=== PATIENT | male | born 1965 | race Caucasian/White ===

== ENCOUNTER 2017-08-21 14:43 | Emergency (ER) | payer OTHER ==
[2017-08-21 14:58] VITALS: BP 129/93; PULSE 65; TEMP 98.2; BMI 29.2
[2017-08-21] MEDS ORDERED: CLINDAMYCIN 600MG PREMIX IVPB 50 ML IVPB ONE (16:58)
[2017-08-21] MEDS ORDERED: CLINDAMYCIN PHOSPHATE 600 MG/4 ML VIAL ONE (17:01)
--- NOTE | 2017-08-21 17:02 | PDOC ---
History of Present Illness - General Chief Complaint: Wound Stated Complaint: SWELLING ON ARM Time Seen by Provider: 08/21/17 16:45 History Source: Patient Exam Limitations: No Limitations - History of Present Illness Initial Comments: 08/21/17 17:01 Patient is a 51-year-old healthy male, no significant medical history currently on no medication presents with erythematous painful, raised area to right forearm. Patient reports that area is causing pain, no fever however states he "doesn't feel well". Past Medical History: Denies. Allergies: Seafood Medications: None Family History: Non-contributory Social History: Denies smoking, alcohol use, or IVDU Review of Systems GENERAL/CONSTITUTIONAL: No fever or chills. No weakness. No weight change. HEAD, EYES, EARS, NOSE AND THROAT: No change in vision. No ear pain or discharge. No sore throat. CARDIOVASCULAR: No chest pain or shortness of breath. RESPIRATORY: No cough, wheezing, or hemoptysis. GASTROINTESTINAL: No nausea, vomiting, diarrhea or constipation. No rectal bleeding. GENITOURINARY: No dysuria, frequency, or change in urination. MUSCULOSKELETAL: No joint or muscle swelling or pain. No neck or back pain. SKIN : No rash or easy bruising. Erythematous raised area to right forearm with central punctum NEUROLOGIC: No headache, vertigo, loss of consciousness, or loss of sensation. PSYCHIATRIC: No depression or anxiety. ENDOCRINE: No increased thirst. No abnormal weight change. HEMATOLOGIC/LYMPHATIC: No anemia, easy bleeding, or history of blood clots. ALLERGIC/IMMUNOLOGIC: No hives or skin allergy. No latex allergy. Physical Exam: GENERAL: The patient is awake, alert, and fully oriented, in no acute distress. EYES: Pupils equal, round and reactive to light, extraocular movements intact, sclera anicteric, conjunctiva clear. ENT: Ears normal, nares patent, oropharynx clear without exudates. Moist mucous membranes. No uvula deviation NECK: Normal range of motion, supple without lymphadenopathy, JVD, or masses. LUNGS: Breath sounds equal, clear to auscultation bilaterally. No wheezes, and no crackles. HEART: Regular rate and rhythm, normal S1 and S2 without murmur, rub or gallop. ABDOMEN: Soft, nontender, normoactive bowel sounds. No guarding, no rebound. No masses. No bruising or abrasions RECTAL : Guaiac negative, normal rectal tone. MUSCULOSKELETAL: Normal range of motion, no edema. No clubbing or cyanosis. No cords, erythema, or tenderness. No CVA Tenderness with fist. NEUROLOGICAL: Cranial nerves II through XII grossly intact. Normal speech, normal gait. SKIN: Warm, Dry, normal turgor, no rashes or lesions noted. Erythematous raised area, well-defined with central punctum, no drainage, no fluctuance. No streaking 08/21/17 18:15 Past History - Past Medical History Allergies/Adverse Reactions: Allergies Allergy/AdvReac Type Severity Reaction Status Date / Time No Known Drug Allergies Allergy Verified 08/21/17 14:58 SEAFOOD Allergy Unknown Uncoded 08/21/17 14:58 Home Medications: Ambulatory Orders Clindamycin [Cleocin -] 300 mg PO Q6HPO #30 capsule 08/21/17 Thyroid Disease: No - Suicide/Smoking/Psychosocial Hx Smoking Status: No Smoking History: Never smoked Have you smoked in the past 12 months: No Number of Cigarettes Smoked Daily: 0 Information on smoking cessation initiated: No Hx Alcohol Use: No Drug/Substance Use Hx: No Substance Use Type: None *Physical Exam - Vital Signs Last Vital Signs Temp Pulse Resp BP Pulse Ox 98.2 F 65 18 129/93 100 08/21/17 14:54 08/21/17 14:54 08/21/17 14:54 08/21/17 14:54 08/21/17 14:54 Medical Decision Making - Medical Decision Making 08/21/17 18:14 A/P: Patient here for evaluation of erythematous raised well-defined area to right forearm with central punctum . Area no fluctuance, not consistent with an abscess however may be folliculitis versus infected bug bite. Because patient states "I just feel well" will give 1 dose of IV clindamycin, DC home on clindamycin. Warm compresses to arm, refrain from rubbing or scratching area Any increased redness, swelling, or signs of infection patient to return back to ER. Wound culture sent minimal drainage noted. I discussed the physical exam findings, ancillary test results and final diagnoses with the patient. I answered all of the patient's questions. The patient was satisfied with the care received and felt comfortable with the discharge plan and treatment plan. The patient will call to arrange follow-up and will return to the Emergency Department with any new, persistant or worsening symptoms. *DC/Admit/Observation/Transfer Diagnosis at time of Disposition: Cellulitis of right arm - Discharge Dispostion Disposition: HOME Condition at time of disposition: Good Admit: No - Prescriptions Prescriptions: Clindamycin [Cleocin -] 300 mg PO Q6HPO #30 capsule - Referrals Referrals: Jamel Schmitt [Non Staff, Medical] - - Patient Instructions Additional Instructions: Warm compresses to arm Please take antibiotics as ordered, please monitor area for any increased redness swelling or streaking of red line up arm if any of the above please return immediately to emergency room Motrin for pain
== END 2017-08-21 18:25 | disposition home or self-care (01) ==
LOC: JERFT 14:43
DX: L03.113 Cellulitis of right upper limb (principal)
CPT/HCPCS: 87070; 87186; 87205; 96365; 99281-25

== ENCOUNTER 2017-12-30 22:20 | Emergency (ER) | payer OTHER ==
[2017-12-30 22:25] VITALS: BP 132/76; PULSE 70; TEMP 98.5; BMI 30.2
[2017-12-30] MEDS ORDERED: DIPHTH,PERTUSS(ACELL),TET 0.5 ML DISP.SYRIN IM ONE (22:41)
--- NOTE | 2017-12-30 22:54 | PDOC ---
History of Present Illness - General Chief Complaint: Laceration Stated Complaint: LACERATION Time Seen by Provider: 12/30/17 22:38 History Source: Patient Exam Limitations: No Limitations - History of Present Illness Initial Comments: 12/30/17 22:50 The patient is a 52M with no PMH who presents after cutting his finger on a sink pipe. Affected finger is 2nd L digit. The patient denies any neurovascular changes on his finger and denies taking any blood thinners. He says it was bleeding profusely initially then the bleeding subsided. He washed his hands immediately after. He does not recall his last tetanus shot. Past History - Past Medical History Allergies/Adverse Reactions: Allergies Allergy/AdvReac Type Severity Reaction Status Date / Time No Known Drug Allergies Allergy Verified 08/21/17 14:58 SEAFOOD Allergy Unknown Uncoded 08/21/17 14:58 Home Medications: Ambulatory Orders Alprazolam [Xanax] 0.5 mg PO PRN 12/30/17 COPD: No Thyroid Disease: No - Suicide/Smoking/Psychosocial Hx Smoking Status: No Smoking History: Never smoked Have you smoked in the past 12 months: No Number of Cigarettes Smoked Daily: 0 Information on smoking cessation initiated: No Hx Alcohol Use: No Drug/Substance Use Hx: No Substance Use Type: None Review of Systems - Review of Systems Able to Perform ROS?: Yes Is the patient limited Belgian proficient: No Constitutional: No: Chills, Fever Integumentary: Yes: Other (Laceration) Neurological: No: Numbness, Tingling, Weakness *Physical Exam - Vital Signs Last Vital Signs Temp Pulse Resp BP Pulse Ox 98.5 F 70 18 132/76 100 12/30/17 22:22 12/30/17 22:22 12/30/17 22:22 12/30/17 22:22 12/30/17 22:22 - Physical Exam General Appearance: Yes: Appropriately Dressed, Apparent Distress HEENT: positive: Normal Voice, Hearing Grossly Normal Respiratory/Chest: negative: Respiratory Distress, Accessory Muscle Use Extremity: positive: Normal Inspection, Normal Range of Motion Integumentary: positive: Dry, Warm, Other (2 0.5 cm linear lacerations on dorsal surface of L 2nd digit; neurovascularly intact in 2nd digit) Procedures - Laceration/Wound Repair Left Dorsal Finger 2nd digit Wound Length: to 2.5 cm Wound Explored: clean Wound's Depth, Shape: superficial Irrigated w/ Saline: Yes Betadine Prep: No Anesthesia: 1% Lidocaine Wound Debrided: minimal Wound Repaired With: Sutures Suture Size/Type: 4:0 Number of Sutures: 4 Layer Closure: No Sterile Dressing Applied: Yes Splint Applied: Yes Sling Applied: No Medical Decision Making - Medical Decision Making 12/30/17 22:52 The patient is a 52M with no PMH who presents after lacerating his finger. Lac is clean. I have had the patient wash his hands thoroughly. Tetanus is given. 12/30/17 23:38 Lacerations repaired with 4-0 suture. *DC/Admit/Observation/Transfer Diagnosis at time of Disposition: Laceration - Discharge Dispostion Disposition: HOME Condition at time of disposition: Stable Admit: No - Referrals - Patient Instructions Printed Discharge Instructions: DI for Laceration Repair Additional Instructions: Please return to the ER if symptoms persist, worsen, or new symptoms arise. Please return to the ER, go to an urgent care, or go to your primary care office in 7-10 days for suture removal. Please return to the ER immediately if you have pain, redness, swelling, or drainage from the site of where you got cut or around it. Please return to the ER if you have any signs or symptoms of chest pain, shortness of breath, uncontrollable fever, chills, nausea, vomiting, numbness, tingling, or weakness in any part of your body, changes in vision, or slurred speech. - Post Discharge Activity
--- NOTE | 2017-12-30 23:22 | PDOC ---
Attending Attestation - Resident Resident Name: Amilcar Hamm - ED Attending Attestation I have performed the following: I have examined & evaluated the patient, The case was reviewed & discussed with the resident, I agree w/resident's findings & plan, Exceptions are as noted - HPI HPI: 12/30/17 23:19 52 M with no PMH presents to ED with laceration over L 2nd digit. Pt was working on pipes when he cut his finger on the edge of a pipe. Pt rinsed it out immediately afterwards. States that it bled initially but eventually stopped. Pt denies any other injury. Does not recall last tetanus shot. - Physicial Exam PE: 12/30/17 23:20 "GENERAL: Awake, alert, and fully oriented, in no acute distress HEAD: No signs of trauma EYES: PERRLA, EOMI, sclera anicteric, conjunctiva clear ENT: Auricles normal inspection, hearing grossly normal, nares patent, oropharynx clear without exudates. Moist mucosa NECK: Nontender, no stepoffs, Normal ROM, supple, no lymphadenopathy, JVD, or masses LUNGS: Breath sounds equal, clear to auscultation bilaterally. No wheezes, and no crackles HEART: Regular rate and rhythm, normal S1 and S2, no murmurs, rubs or gallops ABDOMEN: Soft, nontender, normoactive bowel sounds. No guarding, no rebound. No masses EXTREMITIES: + L 2nd digit with 3cm laceration extending over dorsal aspect of PIP. extensor tendons intact, Normal range of motion. NEUROLOGICAL: Cranial nerves II through XII intact. 5/5 strength and sensation in all extremities, Normal speech, normal gait, normal cerebellar function SKIN: Warm, Dry, normal turgor, no rashes or lesions noted. " - Medical Decision Making 12/30/17 23:20 52 M with L 2nd digit laceration. No evidence of tendon injury. Wound does not extend into joint space. Irrigated. - Lac repaired - Tdap administered Pt is well appearing, with normal vitals. Clinically stable for DC at this time. I discussed the physical exam findings, ancillary test results and final diagnoses with the patient. I answered all of the patient's questions. The patient was satisfied with the care received and felt comfortable with the discharge plan and treatment plan. The patient agrees to follow up with the primary care physician within 24-72 hours.
== END 2017-12-31 00:11 | disposition home or self-care (01) ==
LOC: JER 22:20
PROC: 3E0234Z Introduction of Serum, Toxoid and Vaccine into Muscle, Percutaneous Approach (ICD-10-PCS; principal; 2017-12-30)
PROC: 0HQGXZZ Repair Left Hand Skin, External Approach (ICD-10-PCS; 2017-12-30)
DX: S61.211A Laceration without foreign body of left index finger without damage to nail, initial encounter (principal); W22.8XXA Striking against or struck by other objects, initial encounter; Y93.89 Activity, other specified; Y92.010 Kitchen of single-family (private) house as the place of occurrence of the external cause; Y99.8 Other external cause status
CPT/HCPCS: 90715; 99281-25

== ENCOUNTER 2018-04-10 17:02 | Emergency (ER) | payer OTHER ==
[2018-04-10 17:06] VITALS: BP 134/73; PULSE 64; TEMP 97; BMI 29.2
[2018-04-10] MEDS ORDERED: KETOROLAC TROMETHAMINE 60 MG/2 ML VIAL IM ONE (18:01)
[2018-04-10] MEDS ORDERED: KETOROLAC TROMETHAMINE 60 MG/2 ML VIAL ONE (18:02)
--- NOTE | 2018-04-10 18:07 | PDOC ---
History of Present Illness - General Chief Complaint: Back Pain Stated Complaint: BACK PAIN Time Seen by Provider: 04/10/18 17:15 History Source: Patient Exam Limitations: No Limitations - History of Present Illness Initial Comments: 04/10/18 18:07 Patient is a 52-year-old male past medical history of back pain, who presents to the emergency department today with low back pain on the left side. Patient states he was getting out of the shower when he slipped 6 days ago. Denies falling however he feels like he tweaked his back at that time. His symptoms improved over the next 2 days however on Wednesday he states his symptoms began got worse. He states now that the pain goes down his left leg. Taken naproxen and oxycodone at home with no relief of symptoms. Denies falling, LOC, weakness , dizziness numbness and tingling, saddle anesthesia, bladder or bowel incontinence. Past History - Travel Traveled outside of the country in the last 30 days: No Close contact w/someone who was outside of country & ill: No - Past Medical History Allergies/Adverse Reactions: Allergies Allergy/AdvReac Type Severity Reaction Status Date / Time No Known Drug Allergies Allergy Verified 04/10/18 17:06 SEAFOOD Allergy Unknown Uncoded 04/10/18 17:06 Home Medications: Ambulatory Orders Alprazolam [Xanax] 0.5 mg PO PRN 12/30/17 Ibuprofen 800 mg PO TID #30 tablet 04/10/18 Methylprednisolone [Medrol -] 4 mg PO ASDIR #21 tablet 04/10/18 COPD: No Thyroid Disease: No - Immunization History Immunization Up to Date: Yes - Suicide/Smoking/Psychosocial Hx Smoking Status: No Smoking History: Never smoked Have you smoked in the past 12 months: No Number of Cigarettes Smoked Daily: 0 Hx Alcohol Use: No Drug/Substance Use Hx: No Substance Use Type: None Review of Systems - Review of Systems Able to Perform ROS?: Yes Comments:: 04/10/18 18:04 CONSTITUTIONAL: Absent: fever, chills, diaphoresis, generalized weakness, malaise, loss of appetite HEENT: Absent: rhinorrhea, nasal congestion, throat pain, throat swelling, difficulty swallowing, mouth swelling, ear pain, eye pain, visual Changes CARDIOVASCULAR: Absent: chest pain, loss of consciousness, palpitations, irregular heart rate, peripheral edema RESPIRATORY: Absent: cough, shortness of breath, dyspnea with exertion, orthopnea, wheezing, stridor, hemoptysis GASTROINTESTINAL: Absent: abdominal pain, abdominal distension, nausea, vomiting, diarrhea, constipation, melena, hematochezia GENITOURINARY: Absent: dysuria, frequency, urgency, hesitancy, hematuria, flank pain, genital pain MUSCULOSKELETAL: Present: Low back pain radiating down the L leg. Absent: myalgia, arthralgia, joint swelling SKIN: Absent: rash, itching, pallor HEMATOLOGIC/IMMUNOLOGIC: Absent: easy bleeding, easy bruising, lymphadenopathy, frequent infections ENDOCRINE: Absent: unexplained weight gain, unexplained weight loss, heat intolerance, cold intolerance NEUROLOGIC: Absent: headache, focal weakness or paresthesias, dizziness, unsteady gait, seizure, mental status changes, bladder or bowel incontinence PSYCHIATRIC: Absent: anxiety, depression, suicidal or homicidal ideation, hallucinations. Is the patient limited Kiswahili proficient: No *Physical Exam - Vital Signs Last Vital Signs Temp Pulse Resp BP Pulse Ox 97 F L 64 18 134/73 99 04/10/18 17:03 04/10/18 17:03 04/10/18 17:03 04/10/18 17:03 04/10/18 17:03 - Physical Exam Comments: 04/10/18 18:04 GENERAL: Well developed, well nourished. Awake and alert. No acute distress. MUSCULOSKELETAL TTP of left lower back and midline tenderness. (+) straight leg raise on the L. Strength and gross sensation intact in lower extremities b/l. 2+ patellar reflexes b/l. Normal range of motion at all joints. No CVA tenderness. EXTREMITIES: No cyanosis. No clubbing. No edema. No calf tenderness. SKIN: Warm and dry. Normal capillary refill. No rashes. No jaundice. NEUROLOGICAL: Alert, awake, appropriate. Cranial nerves 2-12 intact. No deficits to light touch and temperature in face, upper extremities and lower extremities. No motor deficits in the in face, upper extremities and lower extremities. Normoreflexic in the upper and lower extremities. Normal speech. Toes are down- going bilaterally. Gait with limp favoring the R. No ataxia PSYCHIATRIC: Cooperative. Good eye contact. Appropriate mood and affect. Medical Decision Making - Medical Decision Making 04/10/18 18:08 Patient is a 52-year-old male who presents emergency Department with 6 days of low back pain. On exam patient with no gross neuro deficits. Positive straight leg test on the left. Tenderness to palpation of the paraspinous muscles on the left at the level of S1. Patient given Toradol with relief of symptoms. Most likely a spasm. However given history of back pain, ortho and neurosurgery referrals given. Return precautions given. Medrol Dosepak prescribed given failed both naproxen and oxycodone at home. We'll discharge patient home at this time. Patient understands all discharge instructions and all questions were answered. *DC/Admit/Observation/Transfer Diagnosis at time of Disposition: Back pain Qualifiers: Back pain location: low back pain Chronicity: acute Back pain laterality: left Sciatica presence: with sciatica Sciatica laterality: sciatica of left side Qualified Code(s): M54.42 - Lumbago with sciatica, left side - Discharge Dispostion Disposition: HOME Condition at time of disposition: Stable Decision to Admit order: No - Referrals Referrals: Roman Collins MD [Staff Physician] - Omid Kaye MD, FAANS [Staff Physician] - - Patient Instructions Printed Discharge Instructions: DI for Low Back Pain Additional Instructions: You have low back pain due to a muscle spasm. Please take ibuprofen 800 mg 3 times a day not to exceed 3000 mg a day. You were also prescribed a medrol dose pack. Please follow the instructions on the box. You may use warm compresses on your back to help with her symptoms. Please follow-up with your primary care doctor. If your symptoms do not resolve in 3-5 days, follow-up with orthopedics. A referral has been provided for you. Return to the emergency department if you have worsening back pain, bladder or bowel incontinence, numbness and tingling in her legs, changes in the way you walk, or any new or worsening symptoms. - Post Discharge Activity
== END 2018-04-10 18:09 | disposition home or self-care (01) ==
LOC: JERFT 17:02
DX: M54.42 Lumbago with sciatica, left side (principal); W18.2XXA Fall in (into) shower or empty bathtub, initial encounter; Y93.E1 Activity, personal bathing and showering; Y92.012 Bathroom of single-family (private) house as the place of occurrence of the external cause; Y99.8 Other external cause status
CPT/HCPCS: 99281-25

== ENCOUNTER 2018-07-26 12:29 | Emergency (ER) | payer OTHER ==
[2018-07-26 12:37] VITALS: BP 105/75; PULSE 68; TEMP 98.6; BMI 28.8
--- NOTE | 2018-07-26 12:57 | PDOC ---
History of Present Illness - General Chief Complaint: Injury Stated Complaint: HAND INJURY Time Seen by Provider: 07/26/18 12:46 History Source: Patient Exam Limitations: No Limitations - History of Present Illness Initial Comments: 07/26/18 13:11 Patient came for evaluation of swelling and pain to right hand. States 2 days ago looped his hand back and struck the dorsum on the door jam of his car and since that time his been swollen and painful. Occurred: reports: yesterday Severity: reports: mild, moderate Pain Location: reports: upper extremity (right hand) Method of Injury: Yes: direct blow Modifying Factors: improves with: cold therapy Associated Symptoms (Fall): denies symptoms Past History - Travel Traveled outside of the country in the last 30 days: No Close contact w/someone who was outside of country & ill: No - Past Medical History Allergies/Adverse Reactions: Allergies Allergy/AdvReac Type Severity Reaction Status Date / Time No Known Drug Allergies Allergy Verified 04/10/18 17:06 SEAFOOD Allergy Unknown Uncoded 04/10/18 17:06 Home Medications: Ambulatory Orders Alprazolam [Xanax] 0.5 mg PO PRN 12/30/17 Ibuprofen 800 mg PO TID #30 tablet 04/10/18 Methylprednisolone [Medrol -] 4 mg PO ASDIR #21 tablet 04/10/18 COPD: No Thyroid Disease: No - Immunization History Immunization Up to Date: Yes - Suicide/Smoking/Psychosocial Hx Smoking Status: No Smoking History: Never smoked Have you smoked in the past 12 months: No Number of Cigarettes Smoked Daily: 0 Information on smoking cessation initiated: No Hx Alcohol Use: Yes Drug/Substance Use Hx: No Substance Use Type: None Trauma Specific PMHX - Complaint Specific PMHX Arthritis: No Back Injury: Yes (2007) Neck Injury: Yes (2007) Review of Systems - Review of Systems Able to Perform ROS?: Yes Is the patient limited Tanzanian proficient: Yes Constitutional: Yes: See HPI. No: Symptoms Reported, Fever, Malaise HEENTM: No: Symptoms Reported ABD/GI: No: Symptoms Reported Musculoskeletal: Yes: See HPI, Joint Pain (right hand ), Muscle Pain. No: Symptoms Reported Integumentary: Yes: Symptoms Reported, See HPI, Bruising Neurological: Yes: Symptoms reported All Other Systems: Reviewed and Negative *Physical Exam - Vital Signs Last Vital Signs Temp Pulse Resp BP Pulse Ox 98.6 F 68 16 105/75 98 07/26/18 12:35 07/26/18 12:35 07/26/18 12:35 07/26/18 12:35 07/26/18 12:35 - Physical Exam General Appearance: Yes: Nourished, Appropriately Dressed, Apparent Distress, Mild Distress HEENT: positive: PALMER, Normal ENT Inspection, TMs Normal, Pharynx Normal Neck: positive: Supple. negative: Lymphadenopathy (R), Lymphadenopathy (L) Respiratory/Chest: positive: Lungs Clear, Normal Breath Sounds Musculoskeletal: positive: Normal Inspection Extremity: positive: Normal Capillary Refill, Swelling. negative: Normal Inspection, Normal Range of Motion (patient has swelling, tenderness, and unable to make fist with right hand, worse at second third MCPs and dorsum of hand. Neurovascular intact to fingertips, but difficulty flexing and extending against resistance.) Integumentary: positive: Normal Color, Warm, Pale Neurologic: positive: anthropometrist II-XII NML intact, Fully Oriented, Alert, Normal Mood/ Affect, Normal Response, Motor Strength 5/5 Progress Note - Progress Note Progress Note: X-ray negative for fractures or dislocations, Vernon wrap applied, patient understands need to keep elevated , continue inflammatory medications and follow -up with orthopedist *DC/Admit/Observation/Transfer Diagnosis at time of Disposition: Contusion, hand Qualifiers: Encounter type: initial encounter Laterality: right Qualified Code(s): S60.221A - Contusion of right hand, initial encounter - Discharge Dispostion Disposition: HOME Condition at time of disposition: Stable Decision to Admit order: No - Referrals Referrals: Aryan Silva MD [Staff Physician] - - Patient Instructions Printed Discharge Instructions: DI for Contusion Additional Instructions: Rest, ice to area on and off for 15 minutes 4-6 times a day Avoid heavy lifting or exercise until pain and swelling is resolved or until further directed Keep area highly elevated to reduce swelling Use splints/Vernon wrap as directed Followup with orthopedist in one to 2 days if not improving, if significantly improved may wait one week for followup with orthopedist May use ibuprofen 2-200 mg tablets every 6 hours as needed for pain - Post Discharge Activity
== END 2018-07-26 13:45 | disposition home or self-care (01) ==
LOC: JERFT 12:29
DX: S60.221A Contusion of right hand, initial encounter (principal); W23.1XXA Caught, crushed, jammed, or pinched between stationary objects, initial encounter; Y93.89 Activity, other specified; Y92.488 Other paved roadways as the place of occurrence of the external cause
CPT/HCPCS: 73130-TC-RT-FY; 99281-25

== ENCOUNTER 2019-01-29 22:17 | Emergency (ER) | payer OTHER ==
[2019-01-29 22:25] VITALS: BP 115/76; PULSE 62; TEMP 98.2; BMI 29.5
--- NOTE | 2019-01-30 02:18 | PDOC ---
History of Present Illness - General Chief Complaint: Pain, Acute Stated Complaint: BACK PAIN AND LEGS Time Seen by Provider: 01/30/19 01:34 - History of Present Illness Initial Comments: 01/30/19 02:16 53 yo M with h/o HTN, obesity, chronic back pain, anxiety who p/w left sided lower back pain. Patient reports acute, unremitting, left sided lower back pain x 48 hours. Described as aching radiating to BL inner thighs. Worse with supine positioning, improved with movement. Patient noted pain following recent employment at [employer]. Denies Endorses chronic BL lower leg and feet parasthesias. Denies recent back trauma. Patient denies ADAN, vision change, palpitations, cough, wheezing, orthopena, PND , leg swelling/pain, N/V, F,C, CP, SOB, urinary complaints,urinary incontinece, perianal parasthesia. hematuria, BPR, abdominal pain, diarrhea, constipation, lightheadedness, weakness, sensory changes. PMHx: as noted above ROS: as noted SHx: Denies IVDA Allergies: NKDA Past History - Past Medical History Allergies/Adverse Reactions: Allergies Allergy/AdvReac Type Severity Reaction Status Date / Time No Known Drug Allergies Allergy Verified 01/29/19 22:25 SEAFOOD Allergy Unknown Uncoded 01/29/19 22:25 Home Medications: Ambulatory Orders Alprazolam [Xanax] 0.5 mg PO PRN 12/30/17 Ibuprofen 800 mg PO TID #30 tablet 04/10/18 Methylprednisolone [Medrol -] 4 mg PO ASDIR #21 tablet 04/10/18 Acetaminophen [Tylenol -] 500 mg PO Q4H PRN #60 tablet 01/30/19 Naproxen [Naprosyn] 500 mg PO BID PRN #60 tablet 01/30/19 COPD: No Thyroid Disease: No - Immunization History Immunization Up to Date: Yes - Suicide/Smoking/Psychosocial Hx Smoking Status: No Smoking History: Never smoked Have you smoked in the past 12 months: No Number of Cigarettes Smoked Daily: 0 Information on smoking cessation initiated: No Hx Alcohol Use: No Drug/Substance Use Hx: No Substance Use Type: None Review of Systems - Review of Systems Comments:: 01/30/19 02:17 GENERAL/CONSTITUTIONAL: No fever or chills. No weakness. HEAD, EYES, EARS, NOSE AND THROAT: No change in vision. No ear pain or discharge. No sore throat. CARDIOVASCULAR: No chest pain or shortness of breath RESPIRATORY: No cough, wheezing, or hemoptysis. GASTROINTESTINAL: No nausea, vomiting, diarrhea or constipation. GENITOURINARY: No dysuria, frequency, or change in urination. MUSCULOSKELETAL: + Low back pain, and BL leg pain. No joint or muscle swelling. SKIN: No rash NEUROLOGIC: No headache, vertigo, loss of consciousness, or change in strength/ sensation. ENDOCRINE: No increased thirst. No abnormal weight change HEMATOLOGIC/LYMPHATIC: No anemia, easy bleeding, or history of blood clots. ALLERGIC/IMMUNOLOGIC: No hives or skin allergy. *Physical Exam - Vital Signs Last Vital Signs Temp Pulse Resp BP Pulse Ox 98.2 F 62 16 115/76 100 01/29/19 22:23 01/29/19 22:23 01/29/19 22:23 01/29/19 22:23 01/29/19 22:23 - Physical Exam Comments: 01/30/19 02:17 GENERAL: Awake, alert, and fully oriented, in no acute distress HEAD: No signs of trauma, normocephalic, atraumatic EYES: PERRLA, EOMI, sclera anicteric, conjunctiva clear ENT: Hearing grossly normal, nares patent, oropharynx clear without exudates. Moist mucosa NECK: Normal ROM, supple, no lymphadenopathy, JVD, or masses LUNGS: No distress, speaks full sentences, clear to auscultation bilaterally HEART: Regular rate and rhythm, normal S1 and S2, no murmurs, rubs or gallops, peripheral pulses normal and equal bilaterally. ABDOMEN: Soft, nontender, normoactive bowel sounds. No guarding, no rebound. No masses. Neg CVA ttp. EXTREMITIES : Normal inspection, Normal range of motion, no edema. No clubbing or cyanosis. BACK: Neg spinal ttp. + Left lower lumbar paraspinal ttp. Absent bony deformity , or skin change, fluctuance. NEUROLOGICAL: Cranial nerves II through XII grossly intact. Normal speech, normal gait, no focal sensorimotor deficits SKIN: Warm, Dry, normal turgor, no rashes or lesions noted Moderate Sedation - Procedure Monitoring Vital Signs: Procedure Monitoring Vital Signs Temperature 98.2 F 01/29/19 22:23 Pulse Rate 62 01/29/19 22:23 Respiratory Rate 16 01/29/19 22:23 Blood Pressure 115/76 01/29/19 22:23 O2 Sat by Pulse Oximetry (%) 100 01/29/19 22:23 Medical Decision Making - Medical Decision Making 01/30/19 03:13 53 yo M with h/o HTN, obesity, chronic back pain, anxiety who p/w acute, unremitting, left sided lower back pain x 48 hours. Described as aching radiating to BL inner thighs. Vitals wnl, AF, A&Ox3. + Left lower paraspinal/ lumbar ttp. Physical exam otherwise unremarkable. Denies leg swelling/pain, N/V , F,C, CP, SOB, urinary complaints,urinary incontinece, perianal parasthesia. hematuria, BPR, abdominal pain, diarrhea, constipation, lightheadedness, weakness, sensory changes. Absent alarm findings. Low suspicion cauda equina, pyelonephritis, AAA, Ao dissection, vertebral fracture, osteomyleitis, epidural abscess. Possible lumbarsacral strain. Pain control and reassess. Ed Course: 01/30/19 03:18 Lumbar spine RAD Robaxin, Naproxen, Tylenol 01/30/19 04:04 Patient refuses back rad pain improved stable for d/c with return precautions. 01/30/19 04:08 Naproxen, Tylenol sent to pharmacy 01/30/19 04:17 Pt. stable for d/c with return precautions. *DC/Admit/Observation/Transfer Diagnosis at time of Disposition: Back pain Qualifiers: Back pain location: low back pain Chronicity: chronic Back pain laterality: unspecified Sciatica presence: with sciatica Sciatica laterality: sciatica laterality unspecified Qualified Code(s): M54.40 - Lumbago with sciatica, unspecified side - Discharge Dispostion Condition at time of disposition: Stable - Prescriptions Prescriptions: Acetaminophen [Tylenol -] 500 mg PO Q4H PRN #60 tablet PRN Reason: Pain Naproxen [Naprosyn] 500 mg PO BID PRN #60 tablet PRN Reason: Pain - Referrals - Patient Instructions Printed Discharge Instructions: Low Back Pain Additional Instructions: Please return to the emergency department with any new or worsening symptoms or concerns. Please follow up with your primary care physician within 72 hours. Please take Naproxen and Tylenol as needed for pain. - Post Discharge Activity Forms/Work/School Notes: Back to Work - Attestations Physician Attestion: 01/30/19 02:18 I attest to the information provided in this note.
[2019-01-30] MEDS ORDERED: ACETAMINOPHEN 325 MG TABLET (FP) PO ONE (03:08)
[2019-01-30] MEDS ORDERED: METHOCARBAMOL 500 MG TABLET PO ONE (03:08)
[2019-01-30] MEDS ORDERED: NAPROXEN 500 MG TABLET (FP) PO ONE (03:08)
[2019-01-30] MEDS ORDERED: NAPROXEN 500 MG TABLET (FP) ONE (03:32)
[2019-01-30] MEDS ORDERED: ACETAMINOPHEN 325 MG TABLET (FP) ONE (03:32)
[2019-01-30] MEDS ORDERED: METHOCARBAMOL 500 MG TABLET ONE (03:33)
[2019-01-30] MEDS ORDERED: LIDOCAINE 5% TOPICAL PATCH TP ONE (04:07)
--- NOTE | 2019-01-30 04:24 | PDOC ---
Attending Attestation - Resident Resident Name: Zaid Drummond - ED Attending Attestation I have performed the following: I have examined & evaluated the patient, The case was reviewed & discussed with the resident, I agree w/resident's findings & plan, Exceptions are as noted - HPI HPI: 01/30/19 04:13 53yo M hx chronic neck pain, HTN, anxiety, GERD presents to the ED with right lower lumbar back pain x 2 days. Pain is dull, worse with lying down, better with movement. Pt also reports pain to his inner thighs b/l. Started a job at [employer] 2 days ago where he does a lot of walking on the hard floors. States walking always exacerbates his back/leg pain. No numbness or weakness in the legs. No urine or stool incontinence/retention. Did not try any meds at home. Denies fevers or chills. DEnies CP/SOB, headache. - Physicial Exam PE: 01/30/19 04:33 GENERAL: Awake, alert, and fully oriented, in no acute distress. Ambulating in ED. EYES: EOMI, sclera anicteric, conjunctiva clear LUNGS: Breath sounds equal, clear to auscultation bilaterally. No wheezes, and no crackles HEART: Regular rate and rhythm, normal S1 and S2, no murmurs, rubs or gallops ABDOMEN: Soft, nontender, normoactive bowel sounds. No guarding, no rebound. EXTREMITIES: Normal range of motion, no edema.No cords, erythema, or tenderness BACK: no midline cervical, thoracic or lumbar ttp NEUROLOGICAL: Normal speech, cranial nerves intact, 5/5 strength in all 4 extremities, normal sensation to light touch in all 4 extremities, normal cerebellar exam, normal gait, normal reflexes and tone SKIN: Warm, Dry, normal turgor, no rashes or lesions noted. - Medical Decision Making 01/30/19 04:51 53yo M presents to the ED with low back paraspinal pain and leg pain, improved with naproxen, robaxin, and tylenol in the ED Pt well appearing, comfortable Exam with normal strength, sensation, tone, and reflexes in LE No red flags for cauda equine or cord compression Pt prescribed naproxen/tylenol and will f/u with PMD Requests DC home I discussed the physical exam findings, ancillary test results and final diagnoses with the patient. I answered all of the patient's questions. The patient was satisfied with the care received and felt comfortable with the discharge plan and treatment plan. The patient will call their primary care physician within 24 hours to arrange follow-up and will return to the Emergency Department with any new, persistent or worsening symptoms.
[2019-01-30] MEDS ORDERED: LIDOCAINE 5% TOPICAL PATCH ONE (04:37)
[2019-01-30] MEDS ORDERED: LIDOCAINE PATCH REMOVAL MC SCH (22:00)
== END 2019-01-30 04:42 | disposition home or self-care (01) ==
LOC: JER 22:17
DX: M54.40 Lumbago with sciatica, unspecified side (principal); I10 Essential (primary) hypertension; F41.9 Anxiety disorder, unspecified; E66.9 Obesity, unspecified; Z68.29 Body mass index [BMI] 29.0-29.9, adult
CPT/HCPCS: 99281-25

== ENCOUNTER 2019-05-18 15:55 | Emergency (ER) | payer OTHER ==
[2019-05-18 16:00] VITALS: BP 135/67; PULSE 56; TEMP 97.7; BMI 29.5
[2019-05-18] MEDS ORDERED: IBUPROFEN 400 MG TABLET (FP) PO ONE ×2 (16:41→16:46)
--- NOTE | 2019-05-18 16:47 | PDOC ---
History of Present Illness - General Chief Complaint: Bite Stated Complaint: DOG BITE Time Seen by Provider: 05/18/19 16:32 History Source: Patient Exam Limitations: Clinical Condition - History of Present Illness Initial Comments: 05/18/19 16:42 Patient with no significant past medical history present with complaint of dog bite to right calf muscle by a friend's dog last night. Patient reported going to a friend's yard and friend's [place] dog bit him in the leg. Patient reported last tetanus shot last year. Patient reported pain to posterior calf muscle of right leg. Denies numbness or tingling sensation. He reported dog is up-to-date on all vaccines and dog usually nice to him until last night. Timing/Duration: reports: yesterday Past History - Past Medical History Allergies/Adverse Reactions: Allergies Allergy/AdvReac Type Severity Reaction Status Date / Time No Known Drug Allergies Allergy Verified 05/18/19 16:00 SEAFOOD Allergy Unknown Uncoded 05/18/19 16:00 Home Medications: Ambulatory Orders Ibuprofen 800 mg PO Q8H PRN #20 tablet 05/18/19 Sulfamethoxazole/Trimethoprim [Bactrim Ds -] 1 tab PO BID #14 tablet 05/18/19 COPD: No Thyroid Disease: No - Immunization History Immunization Up to Date: Yes - Suicide/Smoking/Psychosocial Hx Smoking Status: No Smoking History: Never smoked Have you smoked in the past 12 months: No Number of Cigarettes Smoked Daily: 0 Information on smoking cessation initiated: No Hx Alcohol Use: No Drug/Substance Use Hx: No Substance Use Type: None Review of Systems - Review of Systems Able to Perform ROS?: Yes Is the patient limited Sami proficient: No Constitutional: No: Malaise, Weakness HEENTM: No: Symptoms Reported Respiratory: No: Symptoms reported Cardiac (ROS): No: Symptoms Reported ABD/GI: No: Symptoms Reported : No: Symptoms Reported Musculoskeletal: Yes: Symptoms Reported, See HPI, Muscle Pain (mild pain to right calf muscle) Integumentary: Yes: Symptoms Reported, See HPI, Other (3 puncture wound to right calf muscle) Neurological: No: Numbness, Paresthesia, Tingling All Other Systems: Reviewed and Negative *Physical Exam - Vital Signs Last Vital Signs Temp Pulse Resp BP Pulse Ox 97.7 F 56 L 19 135/67 100 05/18/19 15:57 05/18/19 15:57 05/18/19 15:57 05/18/19 15:57 05/18/19 15:57 - Physical Exam Comments: 05/18/19 16:50 GENERAL: Well developed, well nourished. Awake and alert. No acute distress. CARDIOVASCULAR: Regular rate and rhythm. No murmurs, rubs, or gallops. PULMONARY: No evidence of respiratory distress. MUSCULOSKELETAL : mild tenderness over right leg over calf muscle around area of puncture wound to right calf muscle. No bony deformities EXTREMITIES: No cyanosis. No clubbing. No edema. No calf tenderness. SKIN: Warm and dry. Normal capillary refill. small 4 tiny puncture wound to right calf muscle NEUROLOGICAL: Alert, awake, appropriate. No motor deficits in the lower extremities. Gait is normal without ataxia. PSYCHIATRIC: Cooperative. Good eye contact. Appropriate mood and affect. General Appearance: Yes: Nourished, Appropriately Dressed. No: Apparent Distress Medical Decision Making - Medical Decision Making 05/18/19 16:44 Patient with no significant past medical history present with complaint of dog bite to right calf muscle by a friend's dog last night. Patient reported going to a friend's yard friend's [place] dog bit him in the leg. Patient reported last tetanus shot last year. Patient reported pain to posterior calf muscle of right leg. Denies numbness or tingling sensation. He reported dog is up-to-date on all vaccines and dog usually denies to him onto last night. Exam significant for 4 small puncture wound to posterior right leg over proximal calf muscle with no bleeding. Mild swelling around puncture wound from bite site. Wound cleaned with Betadine and bacitracin applied to wound. Wound covered adhesive bandage. Motrin 800 mg by mouth ordered for pain. Patient be discharged home on Bactrim antibiotics for a week and Motrin when necessary for pain with advised to do hot compresses with PCP follow-up as needed. *DC/Admit/Observation/Transfer Diagnosis at time of Disposition: Puncture wound of right leg excluding thigh Qualifiers: Encounter type: initial encounter Qualified Code(s): S81.831A - Puncture wound without foreign body, right lower leg, initial encounter Dog bite Qualifiers: Encounter type: initial encounter Qualified Code(s): W54.0XXA - Bitten by dog, initial encounter - Discharge Dispostion Disposition: HOME Condition at time of disposition: Stable Decision to Admit order: No - Prescriptions Prescriptions: Ibuprofen 800 mg PO Q8H PRN #20 tablet PRN Reason: pain Sulfamethoxazole/Trimethoprim [Bactrim Ds -] 1 tab PO BID #14 tablet - Referrals Referrals: Felicia Mcdaniel MD [Staff Physician] - - Patient Instructions Printed Discharge Instructions: How to Care for a Domestic Animal Bite, DI for Animal Bites Additional Instructions: Take prescribed antibiotics as prescribed. Take prescribed Motrin as needed for pain. Apply bacitracin to wound twice a day on to healed. Apply warm compresses to right leg 2-3 times a day as needed for swelling. Come back to ED if worsening pain or referred dermatology if persistent swelling after 3 days - Post Discharge Activity
== END 2019-05-18 16:53 | disposition home or self-care (01) ==
LOC: JERFT 15:55
DX: S81.851A Open bite, right lower leg, initial encounter (principal); S81.831A Puncture wound without foreign body, right lower leg, initial encounter; W54.0XXA Bitten by dog, initial encounter; Y93.89 Activity, other specified; Y92.017 Garden or yard in single-family (private) house as the place of occurrence of the external cause; Y99.8 Other external cause status
CPT/HCPCS: 99281-25

== ENCOUNTER 2019-12-08 20:18 | Emergency (ER) | payer OTHER ==
[2019-12-08 20:28] VITALS: BP 145/95; PULSE 67; TEMP 97.8; BMI 30.5
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
== END 2019-12-08 23:45 | disposition home or self-care (01) ==
LOC: JERFT 20:18
DX: S09.8XXA Other specified injuries of head, initial encounter (principal); S16.1XXA Strain of muscle, fascia and tendon at neck level, initial encounter; S00.83XA Contusion of other part of head, initial encounter; S46.811A Strain of other muscles, fascia and tendons at shoulder and upper arm level, right arm, initial encounter; V43.52XA Car driver injured in collision with other type car in traffic accident, initial encounter; Y92.414 Local residential or business street as the place of occurrence of the external cause; Y93.89 Activity, other specified; Y99.8 Other external cause status; Z91.013 Allergy to seafood
CPT/HCPCS: 70150-TC-FY; 70450-TC; 71046-TC-FY; 72125-TC; 73030-TC-RT-FY; 99281-25

== ENCOUNTER 2020-01-21 15:06 | Emergency (ER) | payer OTHER ==
[2020-01-21 15:13] VITALS: BP 142/79; PULSE 64; TEMP 98; BMI 30.2
[2020-01-21] MEDS ORDERED: IBUPROFEN 600 MG TABLET (FP) PO ONE ×2 (15:23→15:27)
--- NOTE | 2020-01-21 15:25 | PDOC ---
History of Present Illness - General Chief Complaint: Injury Stated Complaint: ANKLE PAIN Time Seen by Provider: 01/21/20 15:20 History Source: Patient Exam Limitations: No Limitations Past History - Past Medical History Allergies/Adverse Reactions: Allergies Allergy/AdvReac Type Severity Reaction Status Date / Time No Known Drug Allergies Allergy Verified 01/21/20 15:13 SEAFOOD Allergy Unknown Uncoded 01/21/20 15:13 Home Medications: Ambulatory Orders Ibuprofen 800 mg PO Q8H PRN #20 tablet 05/18/19 Sulfamethoxazole/Trimethoprim [Bactrim Ds -] 1 tab PO BID #14 tablet 05/18/19 Cyclobenzaprine HCl [Flexeril 10 mg] 10 mg PO HS PRN #10 tablet 12/08/19 COPD: No Thyroid Disease: No - Immunization History Immunization Up to Date: Yes - Psycho Social/Smoking Cessation Hx Smoking Status: No Smoking History: Never smoked Have you smoked in the past 12 months: No Number of Cigarettes Smoked Daily: 0 Hx Alcohol Use: No Drug/Substance Use Hx: No Substance Use Type: None Trauma Specific PMHX - Complaint Specific PMHX Arthritis: No Back Injury: Yes (2007) Neck Injury: Yes (2007) *Physical Exam - Vital Signs Last Vital Signs Temp Pulse Resp BP Pulse Ox 98 F 64 18 142/79 99 01/21/20 15:08 01/21/20 15:08 01/21/20 15:08 01/21/20 15:08 01/21/20 15:08 - Physical Exam General Appearance: No: Apparent Distress Extremity: positive: Other (+swelling and TTP along R lateral malleolus, RLE neurovascularly intact, no ecchymosis, no deformity) Integumentary: positive: Normal Color. negative: Ecchymosis, Bruising Neurologic: positive: Alert ED Treatment Course - RADIOLOGY Radiology Studies Ordered: Category Date Time Status ANKLE & FOOT-RIGHT* [RAD] Stat Radiology 01/21/20 15:23 Ordered Medical Decision Making - Medical Decision Making 54-year-old male with no significant past medical history presents with twisting right ankle 2 days ago. Patient states he was using a leaf blower in his yard and there was some dirt there which caused him to twist his ankle. Denies other injuries. Denies fall. Plan: X-ray to rule out fracture, Motrin for pain 01/21/20 15:24 xray negative for fracture likely ankle sprain placed in aircast splint, given crutches stable for dc 01/21/20 16:06 Discharge - Discharge Information Problems reviewed: Yes Clinical Impression/Diagnosis: Ankle sprain Qualifiers: Encounter type: initial encounter Involved ligament of ankle: unspecified ligament Laterality: right Qualified Code(s): S93.401A - Sprain of unspecified ligament of right ankle, initial encounter Condition: Stable Disposition: HOME - Admission No - Additional Discharge Information Prescription Drug Monitoring Program (I-STOP) results: I-STOP not reviewed - Follow up/Referral - Patient Discharge Instructions Patient Printed Discharge Instructions: DI for Ankle Sprain Additional Instructions: Thank you for choosing [facility]. It was a pleasure taking care of you. You may take Motrin 600 mg every 6 hours by mouth as needed for mild to moderate pain. Take Motrin with food. Elevate site of injury You may ice site Use crutches as needed Return to the Emergency Department if your symptoms worsen or persist or have other concerning symptoms. - Post Discharge Activity
== END 2020-01-21 16:05 | disposition home or self-care (01) ==
LOC: JERFT 15:06
PROC: 2W3QX1Z Immobilization of Right Lower Leg using Splint (ICD-10-PCS; principal; 2020-01-21)
DX: S93.401A Sprain of unspecified ligament of right ankle, initial encounter (principal); X50.1XXA Overexertion from prolonged static or awkward postures, initial encounter; Y93.H2 Activity, gardening and landscaping; Y92.017 Garden or yard in single-family (private) house as the place of occurrence of the external cause; Y99.8 Other external cause status
CPT/HCPCS: 29515; 73610-TC-RT-FY; 73630-TC-RT-FY; 99283-25

== ENCOUNTER 2020-08-01 23:20 | Emergency (ER) | payer OTHER ==
[2020-08-01 23:32] VITALS: BP 133/84; PULSE 59; TEMP 98; BMI 29.2
--- OUTSIDE RECORDS SUMMARY | 2020-08-01 23:35 | XMS ---
:1965 Author Organization [facility] Name Relationship Address Phone RE Unavailable Unavailable Unavailable TYLER WOODS [address] [facility] [place] [address] ANDREY WOODS [address] [facility] [address] Re-disclosure Warning The records that you are about to access may contain information from federally- assisted alcohol or drug abuse programs. If such information is present, then the following federally mandated warning applies: This information has been disclosed to you from records protected by federal confidentiality rules (42 CFR part 2). The federal rules prohibit you from making any further disclosure of this information unless further disclosure is expressly permitted by the written consent of the person to whom it pertains or as otherwise permitted by 42 CFR part 2. A general authorization for the release of medical or other information is NOT sufficient for this purpose. The Federal rules restrict any use of the information to criminally investigate or prosecute any alcohol or drug abuse patient.The records that you are about to access may contain highly sensitive health information, the redisclosure of which is protected by Article 27-F of the [facility] Public Health law. If you continue you may haveaccess to information: Regarding HIV / AIDS; Provided by facilities licensed or operated by the [facility] Office of Mental Health; or Provided by the [facility] Office for People With Developmental Disabilities. If such information is present, then the following [facility] mandated warning applies: This information has been disclosed to you from confidential records which are protected by state law. State law prohibits you from making any further disclosure of this information without the specific written consent of the person to whom it pertains, or as otherwise permitted by law. Any unauthorized further disclosure in violation of state law may result in a fine or senior living sentence or both. A general authorization for the release of medical or other information is NOT sufficient authorization for further disclosure. Insurance Providers Payer name Policy type Policy ID Covered Covered republican's Policy P carroll / Coverage republican ID relationship to [employer] Inf ormation type meraz MEDICARE [id number] SP [id number] MEDICARE [id number] SP [id number] A SELF PAY SP INSURANCE PENDING WC/NF [id number] SP [id number] ONLY MEDICARE [id number] SP [id number] A Results ID Date Data Source [id number] 02/11/2020 12:00:00 AM EDT [facility] Name Value Range Interpretation Code Description Data Fabiola rce(s) Supporting Document(s ) 2019-nCoV [facility] RNA XXX ELOISE+probe- Imp This lab was ordered by [facility]Jillian BROCK and reported by [employer] Procedure
--- NOTE | 2020-08-02 01:01 | PDOC ---
History of Present Illness - General Chief Complaint: Toothache Stated Complaint: TOOTHACHE Time Seen by Provider: 08/02/20 00:10 - History of Present Illness Initial Comments: HPI: 08/02/20 00:58 54 yo M no known PMH presenting with tooth pain. Reports that he chipped his tooth this morning around 0800 and initially had no pain. However, he later developed severe 10/10 sharp pain around 1600. Tried 1000 mg of ibuprofen without relief, some relief with ice. Planning to see dentist tomorrow but could not take the pain, prompting him to come to the ER. Allergies: seafood (throat closes up) PMD: none ROS: GENERAL/CONSTITUTIONAL: denies fever, chills, diaphoresis, generalized weakness, malaise, loss of appetite, weight change HEAD, EYES, EARS, NOSE AND THROAT: endorses tooth pain. Denies rhinorrhea, nasal congestion, throat pain, throat swelling, difficulty swallowing, mouth swelling, ear pain, eye pain, visual changes NEUROLOGIC: denies headache, focal weakness, dizziness, unsteady gait, seizure, mental status changes, bladder or bowel incontinence CARDIOVASCULAR: denies chest pain, syncope, palpitations, irregular heart rate, lightheadedness, peripheral edema RESPIRATORY: denies cough, shortness of breath, dyspnea with exertion, orthopnea, wheezing, stridor, hemoptysis GASTROINTESTINAL: denies abdominal pain, abdominal distension, nausea, vomiting, diarrhea, constipation, melena, hematochezia GENITOURINARY: denies dysuria, frequency, urgency, hesitancy, hematuria, flank pain, genital pain MUSCULOSKELETAL: denies myalgia, arthralgia, joint swelling, back pain, neck pain SKIN: denies rash, itching, pallor HEMATOLOGIC/IMMUNOLOGIC: denies easy bleeding, easy bruising, lymphadenopathy, frequent infections PE: Gen: well-developed, well-nourished, appears uncomfortable Neuro: AAOX4, CN II-XII intact, FTN intact HEENT: atraumatic, normocephalic Mouth: extensively chipped #20 tooth without exposed base, poor dentition Neck: trachea midline, supple CV: regular rate, regular rhythm, no murmurs, rubs, or gallops Pulm: CTA b/l, no wheezing Abd: soft, non-distended, non-tender MSK: full ROM, intact pulses Extr: no edema, no deformities Skin: warm, dry MDM: Concerned for tooth pain. Pain control to see dentist tomorrow. Plan for mental blocks. 08/02/20 01:37 Bilateral mental blocks perform using 1.25 ml of 0.5% bupivicaine per side. Patient expresses some relief. Will monitor response, planned 08/02/20 02:09 Pain improved. Will give acetaminophen and ibuprofen here, encourage alternating as needed for pain and prompt f/u with dentist tomorrow. Patient confirms he will see dentist in the morning. Past History - Medical History Allergies/Adverse Reactions: Allergies Allergy/AdvReac Type Severity Reaction Status Date / Time No Known Drug Allergies Allergy Verified 08/01/20 23:28 SEAFOOD Allergy Unknown Uncoded 08/01/20 23:28 Home Medications: Ambulatory Orders Ibuprofen 800 mg PO Q8H PRN #20 tablet 05/18/19 Sulfamethoxazole/Trimethoprim [Bactrim Ds -] 1 tab PO BID #14 tablet 05/18/19 Cyclobenzaprine HCl [Flexeril 10 mg] 10 mg PO HS PRN #10 tablet 12/08/19 Acetaminophen 500 mg PO TID PRN #15 tablet 08/02/20 Ibuprofen 400 mg PO TID PRN #15 tablet 08/02/20 COPD: No Thyroid Disease: No - Immunization History Immunization Up to Date: Yes - Psycho-Social/Smoking History Smoking Status: No Smoking History: Never smoked Have you smoked in the past 12 months: No Number of Cigarettes Smoked Daily: 0 Information on smoking cessation initiated: No - Substance Abuse Hx (Audit-C & DAST Scrn) How often the patient has a drink containing alcohol: Never Score: In Men: 4 or > Positive; In Women: 3 or > Positive: 0 Screen Result (Pos requires Nsg. Audit-10AR): Negative In the last yr the pt used illegal drug/Rx for NonMed reason: No Score: Yes response is considered Positive: 0 Screen Result (Positive result requires Nsg. DAST-10): Negative *Physical Exam - Vital Signs Last Vital Signs Temp Pulse Resp BP Pulse Ox 98.0 F 59 L 18 133/84 99 08/01/20 23:28 08/01/20 23:28 08/01/20 23:28 08/01/20 23:28 08/01/20 23:28 Discharge - Discharge Information Problems reviewed: Yes Clinical Impression/Diagnosis: Chipped tooth Qualifiers: Encounter type: initial encounter Fracture type: closed Qualified Code(s): S02.5XXA - Fracture of tooth (traumatic), initial encounter for closed fracture Condition: Improved Disposition: HOME - Admission No - Additional Discharge Information Prescriptions: Acetaminophen 500 mg PO TID PRN #15 tablet PRN Reason: Pain Ibuprofen 400 mg PO TID PRN #15 tablet PRN Reason: Pain - Follow up/Referral - Patient Discharge Instructions Patient Printed Discharge Instructions: DI for Dental Pain Additional Instructions: You were seen with tooth pain. This improved with medication. Please alternate taking acetaminophen and ibuprofen every 4 to 6 hours as needed for pain. Follow up with your dentist as soon as possible. Follow up with your primary care doctor within one week. Return to the ER if you develop new or worsening symptoms. - Post Discharge Activity
[2020-08-02] MEDS ORDERED: BUPIVACAINE HCL/PF 0.5% (5 MG/ML) 30 ML VIAL IJ ONE (01:11)
--- NOTE | 2020-08-02 01:36 | PDOC ---
Attending Attestation - Resident Resident Name: Graham Delacruz - ED Attending Attestation I have performed the following: I have examined & evaluated the patient, The case was reviewed & discussed with the resident, I agree w/resident's findings & plan, Exceptions are as noted - HPI HPI: 08/02/20 04:33 See resident HPI - Physicial Exam PE: 08/02/20 04:33 Agree with documented exam - Medical Decision Making 08/02/20 04:33 54M here with dental pain, visible chip, no exposed pulp, no abscess mental block dc with dental f/u, pt has dental eval scheduled for tomorrow morning Discharge - Discharge Information Problems reviewed: Yes Clinical Impression/Diagnosis: Chipped tooth Qualifiers: Encounter type: initial encounter Fracture type: closed Qualified Code(s): S02.5XXA - Fracture of tooth (traumatic), initial encounter for closed fracture Condition: Improved Disposition: HOME - Additional Discharge Information Prescriptions: Acetaminophen 500 mg PO TID PRN #15 tablet PRN Reason: Pain Ibuprofen 400 mg PO TID PRN #15 tablet PRN Reason: Pain - Follow up/Referral - Patient Discharge Instructions Patient Printed Discharge Instructions: DI for Dental Pain Additional Instructions: You were seen with tooth pain. This improved with medication. Please alternate taking acetaminophen and ibuprofen every 4 to 6 hours as needed for pain. Follow up with your dentist as soon as possible. Follow up with your primary care doctor within one week. Return to the ER if you develop new or worsening symptoms. - Post Discharge Activity
[2020-08-02] MEDS ORDERED: ACETAMINOPHEN 500 MG TABLET (FP) PO ONE (02:09)
[2020-08-02] MEDS ORDERED: IBUPROFEN 400 MG TABLET (FP) PO ONE ×2 (02:09→02:15)
[2020-08-02] MEDS ORDERED: ACETAMINOPHEN 500 MG TABLET (FP) ONE (02:15)
== END 2020-08-02 02:28 | disposition home or self-care (01) ==
LOC: JER 23:20
DX: S02.5XXA Fracture of tooth (traumatic), initial encounter for closed fracture (principal)
CPT/HCPCS: 99283-25

== ENCOUNTER 2021-05-20 20:53 | Observation (INO) | payer OTHER ==
[2021-05-20] MEDS ORDERED: SODIUM CHLORIDE 0.9% 500 ML INFUS.BAG IV ONE (21:25)
[2021-05-20] MEDS ORDERED: ONDANSETRON 4 MG/2 ML VIAL IVPUSH ONE (21:25)
[2021-05-20] MEDS ORDERED: ONDANSETRON 4 MG/2 ML VIAL ONE (21:35)
[2021-05-20 22:00] LABS: BASO % 1.2 % (0-2.0); EOS % 0.7 % (0-4.5); HEMATOCRIT 44.9 % (35.4-49); HEMOGLOBIN 15.4 GM/dL (11.7-16.9); LYMPH % 18.8 % (8-40); MCH 30.3 pg (25.7-33.7); MCHC 34.4 g/dl (32.0-35.9); MEAN CELL VOLUME 88.2 fl (80-96); MEAN PLT VOLUME 10.1 fl (7.5-11.1); MONO % 5.5 % (3.8-10.2); NEUT % 73.8 % (42.8-82.8); PLATELET COUNT 161 10^3/uL (134-434); RBC 5.09 M/mm3 (4.00-5.60); RDW 13.4 % (11.9-15.9); WHITE BLOOD COUNT 11.1 K/mm3 (4.0-10.0)
[2021-05-20 22:20] LABS: CHLORIDE 109 mmol/L (98-107); SODIUM 139 mmol/L (136-145)
[2021-05-20 22:23] LABS: CALCIUM 8.7 mg/dL (8.5-10.1)
[2021-05-20 22:24] LABS: ALBUMIN 3.8 g/dl (3.4-5.0); ANION GAP 9 MMOL/L (8-16); BLOOD UREA NITROGEN 20.1 mg/dL (7-18); CO2 22 mmol/L (21-32); GLUCOSE,RANDOM 116 mg/dL (74-106); MAGNESIUM 2.1 mg/dL (1.8-2.4)
[2021-05-20 22:27] LABS: CREATININE 1.1 mg/dL (0.55-1.3); SGOT/AST 16 U/L (15-37); SGPT/ALT 36 U/L (13-61)
[2021-05-20 22:29] LABS: BILIRUBIN,TOTAL 0.8 mg/dL (0.2-1); TOT PROT 6.8 g/dl (6.4-8.2)
[2021-05-20 22:30] LABS: ALK PHOS 63 U/L (45-117)
[2021-05-20] MEDS ORDERED: ASPIRIN 81 MG CHEWABLE TABLETS PO ONE (23:26)
[2021-05-20] MEDS ORDERED: ASPIRIN 81 MG CHEWABLE TABLETS ONE (23:29)
[2021-05-20] MEDS ORDERED: NITROGLYCERIN SUBLINGUAL 1/150 0.4 MG TAB SL PRN (23:31)
[2021-05-21 04:16] VITALS: BMI 28.5
[2021-05-21 07:53] LABS: BASO % 0.9 % (0-2.0); EOS % 0.5 % (0-4.5); HEMATOCRIT 43.4 % (35.4-49); HEMOGLOBIN 14.8 GM/dL (11.7-16.9); LYMPH % 26.1 % (8-40); MCH 30.2 pg (25.7-33.7); MEAN CELL VOLUME 88.8 fl (80-96); MEAN PLT VOLUME 10.2 fl (7.5-11.1); MONO % 5.8 % (3.8-10.2); NEUT % 66.7 % (42.8-82.8); PLATELET COUNT 133 10^3/uL (134-434); RBC 4.89 M/mm3 (4.00-5.60); RDW 13.5 % (11.9-15.9); WHITE BLOOD COUNT 9.1 K/mm3 (4.0-10.0)
[2021-05-21 07:59] LABS: INR 1.05 (0.83-1.09); PROTHROMBIN TIME (PATIENT) 12.9 SEC (9.7-13.0)
[2021-05-21 08:02] LABS: ACTIVATED PTT 31.3 SECONDS (25.2-36.5)
[2021-05-21 08:05] LABS: CALCIUM 8.2 mg/dL (8.5-10.1)
[2021-05-21 08:06] LABS: BLOOD UREA NITROGEN 20.1 mg/dL (7-18); MAGNESIUM 2.2 mg/dL (1.8-2.4)
[2021-05-21 08:09] LABS: CREATININE 0.9 mg/dL (0.55-1.3)
[2021-05-21] MEDS ORDERED: IBUPROFEN 600 MG TABLET (FP) PO SCH (10:00)
[2021-05-21] MEDS ORDERED: ENOXAPARIN NA (PORCINE) 40 MG/0.4 ML DISP.SYRIN SQ SCH (10:00)
[2021-05-21 14:43] VITALS: BP 125/76; PULSE 58; TEMP 97.5
[2021-05-21] MEDS ORDERED: PATIENT'S OWN MEDICATION (NON-FORMULARY) (Melatonin [Melatonin] 10 MG Tablet) PO SCH (22:00)
== END 2021-05-21 17:29 | disposition home or self-care (01) ==
LOC: JER 20:53 → INTOOBSV 21:35 → JERBED 21:35 → UNDOADMOB 21:35 → JERBED 23:25 → J4W 05-21 03:17 → JERBED 05-21 03:17 → J4W 05-21 03:17
PROVIDERS: ADMIT Hospitalist; ATTEND Nurse Practitioner Acute Care
PROC: 3E023GC Introduction of Other Therapeutic Substance into Muscle, Percutaneous Approach (ICD-10-PCS; principal; 2021-05-20)
PROC: 3E033GC Introduction of Other Therapeutic Substance into Peripheral Vein, Percutaneous Approach (ICD-10-PCS; 2021-05-20)
PROC: 3E0337Z Introduction of Electrolytic and Water Balance Substance into Peripheral Vein, Percutaneous Approach (ICD-10-PCS; 2021-05-20)
DX: R55 Syncope and collapse (principal); R07.9 Chest pain, unspecified; R00.1 Bradycardia, unspecified; Z29.9 Encounter for prophylactic measures, unspecified; Z91.013 Allergy to seafood
CPT/HCPCS: 36415; 71045-TC-FY; 80048; 80053; 82550; 83735; 84484; 85025; 85610; 85730; 93005; 93010; 93351; 96372; 96374; 99285-25; C9803; G0378; U0003; U0005

== ENCOUNTER 2021-11-23 21:49 | Emergency (ER) | payer OTHER ==
[2021-11-23 21:52] VITALS: BP 125/69; PULSE 63; TEMP 98.2; BMI 29.5
[2021-11-23] MEDS ORDERED: IBUPROFEN 400 MG TABLET (FP) PO ONE ×2 (22:48→23:02)
== END 2021-11-24 00:24 | disposition home or self-care (01) ==
LOC: JER 21:49
DX: S09.90XA Unspecified injury of head, initial encounter (principal); M25.562 Pain in left knee; W00.9XXA Unspecified fall due to ice and snow, initial encounter
CPT/HCPCS: 70450-TC; 72125-TC; 73564-TC-LT-FY; 99284-25

== ENCOUNTER 2022-11-13 22:37 | Emergency (ER) | payer OTHER ==
[2022-11-13 23:03] VITALS: BP 137/82; PULSE 64; RESP 18; TEMP 97.5; BMI 29.2
[2022-11-14] MEDS ORDERED: morphine CARPU-JECT 4 MG/1 ML DISP.SYRIN IVPUSH ONE (00:25)
[2022-11-14] MEDS ORDERED: KETOROLAC TROMETHAMINE 15 MG/ML VIAL IM ONE (01:20)
[2022-11-14 01:22] LABS: BASO % 1.3 % (0-2.0); EOS % 2.5 % (0-4.5); HEMATOCRIT 49.1 % (35.4-49); HEMOGLOBIN 16.5 GM/dL (11.7-16.9); LYMPH % 28.9 % (8-40); MCH 29.9 pg (25.7-33.7); MCHC 33.6 g/dl (32.0-35.9); MEAN CELL VOLUME 88.9 fl (80-96); MEAN PLT VOLUME 9.8 fl (7.5-11.1); MONO % 8.8 % (3.8-10.2); NEUT % 58.5 % (42.8-82.8); PLATELET COUNT 157 10^3/uL (134-434); RBC 5.53 M/mm3 (4.00-5.60); RDW 13.4 % (11.9-15.9); WHITE BLOOD COUNT 8.9 K/mm3 (4.0-10.0)
[2022-11-14 01:29] LABS: INR 1.09 (0.83-1.09); PROTHROMBIN TIME (PATIENT) 12.6 SEC (9.7-13.0)
[2022-11-14 01:32] LABS: ACTIVATED PTT 34.5 SECONDS (25.2-36.5)
[2022-11-14] MEDS ORDERED: KETOROLAC TROMETHAMINE 15 MG/ML VIAL ONE (01:36)
[2022-11-14] MEDS ORDERED: morphine SULFATE 4 MG/ML VIAL ONE (01:36)
[2022-11-14 01:53] LABS: CALCIUM 9.2 mg/dL (8.5-10.1)
[2022-11-14 01:54] LABS: ALBUMIN 3.8 g/dl (3.4-5.0); BLOOD UREA NITROGEN 27.8 mg/dL (7-18)
[2022-11-14 01:59] LABS: BILIRUBIN,TOTAL 0.5 mg/dL (0.2-1)
== END 2022-11-14 05:29 | disposition home or self-care (01) ==
LOC: JER 22:37
PROC: 3E033GC Introduction of Other Therapeutic Substance into Peripheral Vein, Percutaneous Approach (ICD-10-PCS; principal; 2022-11-13)
PROC: 3E023GC Introduction of Other Therapeutic Substance into Muscle, Percutaneous Approach (ICD-10-PCS; principal; 2022-11-13)
DX: K40.90 Unilateral inguinal hernia, without obstruction or gangrene, not specified as recurrent (principal)
CPT/HCPCS: 0241U-QW; 36415; 71045-TC-FY; 73564-TC-RT-FY; 74177-TC; 80053; 83605; 85025; 85610; 85730; 93005; 93010; 99285-25; Q9967

== ENCOUNTER 2023-04-29 16:01 | Emergency (ER) | payer OTHER ==
[2023-04-29 16:22] VITALS: BP 124/87; PULSE 63; RESP 18; TEMP 98.1; BMI 30.2
[2023-04-29] MEDS ORDERED: ACETAMINOPHEN 1000 MG/100 ML BAG IVPB ONE (17:48)
[2023-04-29] MEDS ORDERED: ACETAMINOPHEN INJECTION 100 ML IVPB ONE (17:58)
[2023-04-29 18:34] LABS: BASO % 1.2 % (0-2.0); EOS % 2.4 % (0-4.5); HEMOGLOBIN 17.8 GM/dL (11.7-16.9); MCH 30.2 pg (25.7-33.7); MCHC 34.2 g/dl (32.0-35.9); MEAN CELL VOLUME 88.3 fl (80-96); MEAN PLT VOLUME 9.7 fl (7.5-11.1); MONO % 6.3 % (3.8-10.2); NEUT % 69.1 % (42.8-82.8); PLATELET COUNT 162 10^3/uL (134-434); RBC 5.89 M/mm3 (4.00-5.60); RDW 13.7 % (11.9-15.9); WHITE BLOOD COUNT 9.1 K/mm3 (4.0-10.0)
[2023-04-29 18:42] LABS: INR 1.1 (0.83-1.09); PROTHROMBIN TIME (PATIENT) 12.7 SEC (9.7-13.0)
[2023-04-29 18:45] LABS: ACTIVATED PTT 33.9 SECONDS (25.2-36.5)
[2023-04-29 18:57] LABS: POTASSIUM 4.6 mmol/L (3.5-5.1)
[2023-04-29 18:59] LABS: ALBUMIN 4.2 g/dl (3.4-5.0); BLOOD UREA NITROGEN 19.5 mg/dL (7-18); CALCIUM 9.7 mg/dL (8.5-10.1)
[2023-04-29 19:02] LABS: CREATININE 1.1 mg/dL (0.55-1.3)
[2023-04-29 19:04] LABS: BILIRUBIN,TOTAL 0.8 mg/dL (0.2-1); TOT PROT 7.4 g/dl (6.4-8.2)
[2023-04-29] MEDS ORDERED: ONDANSETRON 4 MG/2 ML VIAL IVPUSH ONE (19:39)
[2023-04-29] MEDS ORDERED: FAMOTIDINE 20 MG/50 ML IVPB 20 MG/50 ML MG IVPB ONE ×2 (19:39→20:51)
[2023-04-29] MEDS ORDERED: SODIUM CHLORIDE 0.9% 1000 ML INFUS.BAG IV ONE (19:39)
[2023-04-29] MEDS ORDERED: morphine SULFATE 4 MG/ML VIAL IVPUSH ONE (20:02)
[2023-04-29] MEDS ORDERED: morphine SULFATE 4 MG/ML VIAL ONE (20:51)
[2023-04-29] MEDS ORDERED: ONDANSETRON 4 MG/2 ML VIAL ONE (20:51)
[2023-04-29] MEDS ORDERED: KETOROLAC TROMETHAMINE 15 MG/ML VIAL IVPUSH ONE (21:15)
[2023-04-29] MEDS ORDERED: KETOROLAC TROMETHAMINE 15 MG/ML VIAL ONE (21:34)
== END 2023-04-29 22:23 | disposition home or self-care (01) ==
LOC: JER 16:01
PROC: 3E033GC Introduction of Other Therapeutic Substance into Peripheral Vein, Percutaneous Approach (ICD-10-PCS; principal; 2023-04-29)
PROC: 3E033NZ Introduction of Analgesics, Hypnotics, Sedatives into Peripheral Vein, Percutaneous Approach (ICD-10-PCS; 2023-04-29)
PROC: 3E0333Z Introduction of Anti-inflammatory into Peripheral Vein, Percutaneous Approach (ICD-10-PCS; 2023-04-29)
PROC: 3E033GC Introduction of Other Therapeutic Substance into Peripheral Vein, Percutaneous Approach (ICD-10-PCS; 2023-04-29)
PROC: 3E033GC Introduction of Other Therapeutic Substance into Peripheral Vein, Percutaneous Approach (ICD-10-PCS; 2023-04-29)
DX: K40.90 Unilateral inguinal hernia, without obstruction or gangrene, not specified as recurrent (principal); N43.3 Hydrocele, unspecified; R11.0 Nausea; N50.811 Right testicular pain; N50.812 Left testicular pain
CPT/HCPCS: 36415; 74176-TC; 76870-TC; 80053; 83605; 85025; 85610; 85730; 86850; 86900; 86901; 99285-25

== ENCOUNTER 2023-05-24 05:27 | Day surgery (SDC) | payer OTHER ==
[2023-05-19 15:56] VITALS: BMI 30.5
[2023-05-20 12:20] LABS: BASO % 0.9 % (0-2.0); EOS % 1.9 % (0-4.5); HEMOGLOBIN 17.3 GM/dL (11.7-16.9); LYMPH % 26.9 % (8-40); MCH 29.6 pg (25.7-33.7); MCHC 33.3 g/dl (32.0-35.9); MEAN CELL VOLUME 88.8 fl (80-96); MEAN PLT VOLUME 10.5 fl (7.5-11.1); MONO % 7.3 % (3.8-10.2); PLATELET COUNT 172 10^3/uL (134-434); RBC 5.86 M/mm3 (4.00-5.60); RDW 13.8 % (11.9-15.9); WHITE BLOOD COUNT 8.3 K/mm3 (4.0-10.0)
[2023-05-20 12:21] LABS: PH,URINE 6.5 (5.0-8.0); URINE APPEARANCE CLEAR; URINE BILIRUBIN 1+ (NEGATIVE); URINE COLOR DK YELLOW; URINE GLUCOSE (UA) NEGATIVE (NEGATIVE); URINE KETONE TRACE (NEGATIVE); URINE LEUK ESTERASE NEGATIVE (NEGATIVE); URINE NITRITE NEGATIVE (NEGATIVE); URINE PROTEIN TRACE (NEGATIVE)
[2023-05-20 12:25] LABS: INR 1.12 (0.83-1.09)
[2023-05-20 12:41] LABS: POTASSIUM 4.4 mmol/L (3.5-5.1)
[2023-05-20 12:42] LABS: BLOOD UREA NITROGEN 17.2 mg/dL (7-18)
[2023-05-20 12:43] LABS: CALCIUM 9.8 mg/dL (8.5-10.1)
[2023-05-20 12:44] LABS: ALBUMIN 4.1 g/dl (3.4-5.0)
[2023-05-20 12:48] LABS: BILIRUBIN,TOTAL 0.9 mg/dL (0.2-1); TOT PROT 7.4 g/dl (6.4-8.2)
[2023-05-20 13:04] LABS: CREATININE 1.1 mg/dL (0.55-1.3)
[2023-05-24] MEDS ORDERED: LIDOCAINE HCL 1%, 10 MG/ML (10ML VIAL) MDV ONE (11:39)
[2023-05-24] MEDS ORDERED: PROPOFOL 20 ML ONE (11:49)
[2023-05-24] MEDS ORDERED: ROCURONIUM BROMIDE 50 MG/5 ML SYRINGE ONE (11:49)
[2023-05-24] MEDS ORDERED: SUCCINYLCHOLINE CHLORIDE 200 MG/10 ML SYRINGE ONE (11:49)
[2023-05-24] MEDS ORDERED: ceFAZolin SODIUM 1 GM VIAL IVPB ONE (12:12)
[2023-05-24] MEDS ORDERED: ceFAZolin SODIUM 1 GM VIAL ONE (12:19)
[2023-05-24] MEDS ORDERED: NEOSTIGMINE METHYLSULFATE 0.5 MG/1 ML - 10 ML MDV ONE (13:22)
[2023-05-24] MEDS ORDERED: GLYCOPYRROLATE 0.2 MG/1 ML VIAL ONE ×2 (13:23)
[2023-05-24] MEDS ORDERED: ONDANSETRON 4 MG/2 ML VIAL IVPUSH PRN (14:41)
[2023-05-24] MEDS ORDERED: oxyCODONE HCL 5 MG TABLET PO PRN (14:41)
[2023-05-24] MEDS ORDERED: oxyCODONE HCL 5 MG TABLET ONE (17:08)
[2023-05-24 19:34] VITALS: BP 141/94; PULSE 96; RESP 16; TEMP 98.4
== END 2023-05-24 19:25 | disposition home or self-care (01) ==
LOC: JASU-SURG 05:27
PROVIDERS: ATTEND Surgery
PROC: 0YUA0JZ Supplement Bilateral Inguinal Region with Synthetic Substitute, Open Approach (ICD-10-PCS; principal; 2023-05-24 12:30)
DX: K40.20 Bilateral inguinal hernia, without obstruction or gangrene, not specified as recurrent (principal)
CPT/HCPCS: 36415; 80053; 81003; 85025; 85610; 93005; 93010; 94760; C1781; J1100

== ENCOUNTER 2024-03-21 12:47 | Emergency (ER) | payer OTHER ==
[2024-03-21 13:03] VITALS: RESP 19; BMI 30.8
[2024-03-21 16:05] VITALS: BP 122/78; PULSE 72; TEMP 97.9
== END 2024-03-21 16:05 | disposition home or self-care (01) ==
LOC: JER 12:47
DX: S16.1XXA Strain of muscle, fascia and tendon at neck level, initial encounter (principal); M54.12 Radiculopathy, cervical region; M79.602 Pain in left arm; H53.9 Unspecified visual disturbance; W01.198A Fall on same level from slipping, tripping and stumbling with subsequent striking against other object, initial encounter; Y93.73 Activity, racquet and hand sports
CPT/HCPCS: 70450-TC; 72125-TC; 99284-25